=== PATIENT | male | born 1950 | race Caucasian/White ===

== ENCOUNTER 2019-07-08 13:38 | Emergency (ER) | payer MEDICARE, OTHER ==
[~2019-07-08] VITALS: Ht 180 cm; Wt 110.8 kg
--- NOTE | 2019-07-08 14:04 | ED Upper Extremity ---
General Chief Complaint: Upper Extremity Stated Complaint: FALL; RT WRIST INJ Nursing Triage Note: Patient states he stepped off a ladder and fell, landing on his right wrist. Pain and swelling present to right wrist. Nursing Sepsis Screen: No Definite Risk Source: patient History of Present Illness Date Seen by Provider: Jul 08, 2019 Time Seen by Provider: 13:45 Initial Comments Patient is a 68-year-old right-handed male who presents with an isolated right wrist/hand injury after accidental fall with an outstretched hand. Patient fell 30 minutes prior to ED arrival. Patient with tenderness swelling of her distal wrist. No motor weakness or loss of sensation. No other acute symptoms or c omplaints. Onset: just prior to arrival Pain/Injury Location: right wrist Method of Injury: fell Modifying Factors: Improves With Movement Allergies and Home Medications Patient Home Medication List Home Medication List Reviewed: Yes Review of Systems Constitutional: see HPI EENTM: no symptoms reported Respiratory: no symptoms reported Cardiovascular: no symptoms reported Gastrointestinal: no symptoms reported Genitourinary: no symptoms reported Musculoskeletal: joint swelling Skin: see HPI Psychiatric/Neurological: See HPI Past Louadsa-Jfucgl-Msgydn Hx Past Med/Social Hx: Reviewed Nursing Past Med/Soc Hx Patient Social History Recent Foreign Travel: No Contact w/Someone Who Travel: No Recent Infectious Disease Expo: No Physical Exam Vital Signs Vital Signs - First Documented 07/08/19 13:49 Temp 36.6 Pulse 99 Resp 16 B/P (MAP) 133/98 (110) Pulse Ox 96 O2 Delivery Room Air Capillary Refill : Less Than 3 Seconds Height, Weight, BMI Height: '" Weight: lbs. oz. 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 No neurovascular deficits. Patient placed in splint and sling with instructions to follow-up with orthopedic surgeon on-call. Impression Primary Impression: Wrist fracture, right Disposition: 01 HOME, SELF-CARE Condition: Stable Departure-Patient Inst. Referrals: ALEJA CAMPUZANO MD (PCP/Family) Primary Care Physician KHOA SCHROEDER MD Patient Instructions: Wrist Fracture (DC) Add. Discharge Instructions: Please wear his sling and splint and follow-up with on-call orthopedic surgeon. Contact Dr. Schroeder's office and schedule follow up appointment in the next 3-5 days. All discharge instructions reviewed with patient and/or family. Voiced understanding. Scripts Hydrocodone/Acetaminophen ([place] 5-325 Tablet) 1 Each Tablet 1 TAB PO Q4-6HR for Pain MDD 10 TABS for 7 Days, #15 TAB Prov: GEO LOVELACE DO 07/08/19 GEO LOVELACE DO Jul 08, 2019 14:04
--- NOTE | 2019-07-08 14:14 | Diagnostic Imaging Report ---
INDICATION: Fall with wrist pain. TIME OF EXAM: 01:39 p.m. FINDINGS: Three views of the right wrist were obtained. There is a distal radius fracture with intra-articular extension. No significant displacement or angulation is seen. There is also a fracture of the ulnar styloid. Carpal bones are intact. Visualized metacarpals are intact. IMPRESSION: Distal radius and ulnar fractures. Dictated by: Dictated on workstation # [id number]
[2019-07-08] MEDS ORDERED: HYDR-4226 PO (14:27)
[2019-07-08 14:57] VITALS: BP 103/76
== END 2019-07-08 15:16 | disposition home or self-care (01) ==
LOC: ER FS 13:41
DX: S62.101A Fracture of unspecified carpal bone, right wrist, initial encounter for closed fracture (principal); W11.XXXA Fall on and from ladder, initial encounter
CPT/HCPCS: 29125; 73110

== ENCOUNTER 2022-04-23 14:02 | Emergency (ER) | payer MEDICARE, OTHER ==
[~2022-04-23] VITALS: Ht 180.3 cm; Wt 104.3 kg
[~2022-04-23 14:02] MED LIST: HYDR-4226 PO
--- NOTE | 2022-04-23 14:13 | ED Upper Extremity ---
General Stated Complaint: FALL/LEFT WRIST INJURY History of Present Illness Date Seen by Provider: Apr 23, 2022 Time Seen by Provider: 14:11 Initial Comments 71 year-old male presents with left wrist swelling and injury. He reports that about an hour ago he was getting a sock on when he stepped on the end of his stock then move and tripped. He try to catch himself with his left hand and now has pain and swelling in his left wrist with decreased range of motion. He has some mild chest wall pain from where his arm was when he fell but does not feel he that needs further evaluated. He is here just to have his wrist evaluated. No other systemic complaints Allergies and Home Medications Allergies Coded Allergies: No Known Drug Allergies (Unverified , 04/23/22) Patient Home Medication List Home Medication List Reviewed: Yes Hydrocodone/Acetaminophen (Hydrocodone/Acetaminophen 5 MG/325 MG TAB) 1 Each Tablet, 1 TAB PO Q4-6HR Prescribed by: GEO LOVELACE on 07/08/19 1427 Hydrocodone/Acetaminophen (Hydrocodone-Acetamin 5-325 mg) 5 Mg-325 Mg Tablet, 1 TAB PO Q8H PRN for PAIN-MODERATE (5-7) Prescribed by: MARIE CORTES on 04/23/22 1431 Review of Systems Constitutional: No chills, No dizziness, No fever EENTM: no symptoms reported Respiratory: no symptoms reported Cardiovascular: see HPI Gastrointestinal: no symptoms reported Genitourinary: no symptoms reported Musculoskeletal: see HPI Skin: see HPI Psychiatric/Neurological: No Symptoms Reported Past Emtauum-Twlqss-Lrhjts Hx Seasonal Allergies Seasonal Allergies: No Past Medical History Surgeries: Yes (Left leg, back, left shoulder, left hip) Gallbladder, Orthopedic Respiratory: No Cardiac: Yes Hypertension Neurological: No Genitourinary: Yes Benign Prostatic Hyperpl Gastrointestinal: No Musculoskeletal: No Endocrine: No HEENT: No Cancer: No Psychosocial: No Integumentary: No Physical Exam Vital Signs Vital Signs - First Documented 04/23/22 14:05 Temp 37.1 Pulse 79 Resp 16 B/P (MAP) 145/85 (105) Pulse Ox 100 O2 Delivery Room Air Capillary Refill : Height, Weight, BMI Height: '" Weight: lbs. oz. kg; 34.00 BMI Method: General Appearance: WD/WN, no apparent distress Neck: full range of motion, supple Cardiovascular: normal peripheral pulses, regular rate, rhythm Respiratory: lungs clear, normal breath sounds, no respiratory distress Gastrointestinal: non tender, soft Shoulder: normal inspection Elbow/Forearm: normal inspection Wrist: Yes limited ROM, Yes soft tissue tenderness, Yes swelling Hand: normal inspection Neurologic/Tendon: normal sensation Neurologic/Psychiatric: no motor/sensory deficits, alert, normal mood/affect, oriented x 3 Skin: normal color, warm/dry Progress/Results/Core Measures Results/Orders My Orders Orders - MARIE CORTES DO Wrist 3 View Left (04/23/22 14:14) Ortho Glass (04/23/22 14:24) Vital Signs/I&O 04/23/22 04/23/22 14:05 14:20 Temp 37.1 37.1 Pulse 79 79 Resp 16 16 B/P (MAP) 145/85 (105) 145/85 Pulse Ox 100 100 O2 Delivery Room Air Room Air Progress Progress Note : Progress Note Patient with left wrist fracture. He will be placed in a splint. Recommend he follow-up with Diogo Das for further management. Patient was stable and discharged home Departure Impression Primary Impression: Fracture of left wrist Qualified Codes: S62.102A - Fracture of unspecified carpal bone, left wrist, initial encounter for closed fracture Disposition: HOME, SELF-CARE Condition: Stable Departure-Patient Inst. Referrals: ALEJA CAMPUZANO MD (PCP/Family) Primary Care Physician BALJINDER DAS Patient Instructions: Forearm and Wrist Fractures ED, Splint Care ED Add. Discharge Instructions: Please keep elevated when not ambulating Please call Diogo Das tomorrow morning to arrange for an outpatient follow-up next week Scripts Hydrocodone/Acetaminophen (Hydrocodone-Acetamin 5-325 mg) 5 Mg-325 Mg Tablet 1 TAB PO Q8H PRN for PAIN-MODERATE (5-7), #5 TAB Prov: MARIE CORTES DO 04/23/22 MARIE CORTES DO Apr 23, 2022 14:13
[2022-04-23 14:20] VITALS: BP 145/85
--- NOTE | 2022-04-23 14:25 | Diagnostic Imaging Report ---
INDICATION: Pain after fall. FINDINGS: There is a mildly comminuted fracture of the distal radius which appears to extend into the radiocarpal joint. There appears to be an old ulnar styloid fracture. There is no other fracture or dislocation. Soft tissues are unremarkable. IMPRESSION: Comminuted intra-articular fracture of the distal left radius. Dictated by: Dictated on workstation # [id number]
[2022-04-23] MEDS ORDERED: ACHD5005 PO (14:31)
== END 2022-04-23 14:40 | disposition home or self-care (01) ==
LOC: EDUNIT# 14:02 → ER FS 14:03
DX: S62.102A Fracture of unspecified carpal bone, left wrist, initial encounter for closed fracture (principal); W01.0XXA Fall on same level from slipping, tripping and stumbling without subsequent striking against object, initial encounter
CPT/HCPCS: 73110; 99283; A4565

== ENCOUNTER → 2022-05-08 | Outpatient (CLI) | payer MEDICARE, OTHER ==
[~2022-05-08] MED LIST changes: +ACHD5005 PO
--- NOTE | 2022-05-08 12:52 | Diagnostic Imaging Report ---
INDICATION: Wrist pain. Followup fracture. Comparison with 04/23/2022. FINDINGS: The comminuted intra-articular fracture of the distal radius as well as ulnar styloid tip fracture again noted. There has been some early callus formation. Overall alignment is good. Carpal bones show no subluxation. No evidence of osteonecrosis. IMPRESSION: Early healing of the comminuted intra-articular nondisplaced fracture of the distal radius. Dictated by: Dictated on workstation # [id number]
== END ==
LOC: RAD FS 09:08
PROVIDERS: ATTEND Nurse Practitioner
DX: S52.615D Nondisplaced fracture of left ulna styloid process, subsequent encounter for closed fracture with routine healing (principal); S52.572D Other intraarticular fracture of lower end of left radius, subsequent encounter for closed fracture with routine healing; X58.XXXD Exposure to other specified factors, subsequent encounter
CPT/HCPCS: 73100